=== PATIENT | male | born 1945 | race African-American/Black ===

== ENCOUNTER 2017-07-05 14:15 | Observation (INO) | payer OTHER, MEDICARE ==
[2017-07-05 14:42] LABS: ADD MAN DIFF? NO
[2017-07-05 14:45] LABS: BASO % 1 % (0-3); EOS # 0.2 x10^3/uL (0.0-0.7); EOS % 4 % (0-3); HEMATOCRIT 46.8 % (39.0-53.0); HEMOGLOBIN 15.6 g/dL (13.0-17.5); LYMPH # 2.8 x10^3/uL (1.0-4.8); LYMPH % 47 % (24-48); MEAN CORPUSCULAR HEMOGLOBIN 31 pg (25-35); MEAN CORPUSCULAR HGB CONC 33 g/dL (31-37); MEAN CORPUSCULAR VOLUME 93 fL (79-100); MONO % 17 % (0-9); NEUT # 1.9 x10^3uL (1.8-7.7); NEUT % 32 % (31-73); PLATELET COUNT 241 x10^3/uL (140-400); RED BLOOD COUNT 5.04 x10^6/uL (4.30-5.70); RED CELL DISTRIBUTION WIDTH 15.2 % (11.5-14.5); WHITE BLOOD COUNT 5.9 x10^3/uL (4.0-11.0)
[2017-07-05] MEDS ORDERED: MORPHINE SULFATE 4 MG/ML DISP.SYRIN. IV (15:00)
[2017-07-05] MEDS ORDERED: ONDANSETRON PF 4 MG/2 ML VIAL. IV ×2 (15:00→15:15)
[2017-07-05 15:07] LABS: NT-PRO BNP 89 pg/mL (0-124)
[2017-07-05] MEDS ORDERED: diphenhydrAMINE HCL 25 MG CAPSULE PO (15:15)
[2017-07-05] MEDS ORDERED: ACETAMINOPHEN/CODEINE 300/30MG TABLET. PO (15:15)
[2017-07-05] MEDS ORDERED: ACETAMINOPHEN 500 MG TABLET PO (15:15)
[2017-07-05] MEDS ORDERED: CALCIUM CARBONATE 500 MG TAB.CHEW PO (15:15)
[2017-07-05] MEDS ORDERED: IBUPROFEN 400 MG TABLET. PO (15:15)
[2017-07-05] MEDS ORDERED: NICOTINE 21MG PATCH. TD (15:15)
[2017-07-05] MEDS: METOPROLOL TART IMMED RELEASE 25 MG TABLET. PO (16:32)
[2017-07-05] MEDS: MORPHINE SULFATE 4 MG/ML DISP.SYRIN. IV (20:06)
[2017-07-05 20:49] LABS: BARBITURATES NEG (NEG); BENZODIAZEPINES NEG (NEG); CANNABINOIDS NEG (NEG); COCAINE POS (NEG); METHADONE NEG (NEG); OPIATES NEG (NEG); PHENCYCLIDINE NEG (NEG)
[2017-07-05 20:50] LABS: AMPHETAMINE/METHAMPHETAMINE NEG (NEG); ETHANOL, URINE NEG (NEG)
[2017-07-05] MEDS: HYDROcodone/APAP 5/325MG 1 TAB TABLET PO (23:05)
[2017-07-06] MEDS: MORPHINE SULFATE 4 MG/ML DISP.SYRIN. IV (03:52)
[2017-07-06 05:26] LABS: TROPONINI 0.089 ng/mL (0.000-0.055)
[2017-07-06 06:20] LABS: CKMB INDEX 0.5 % (0-4); CKMB MASS 0.9 ng/mL (0.0-3.6); CREATINE KINASE 170 U/L (39-308)
[2017-07-06] MEDS: HYDROcodone/APAP 5/325MG 1 TAB TABLET PO (08:40)
[2017-07-06] MEDS: METOPROLOL TART IMMED RELEASE 25 MG TABLET. PO (09:00)
[2017-07-06] MEDS: REGADENOSON 0.4 MG/5 ML DISP.SYRIN. IV (15:43)
== END 2017-07-06 18:15 | disposition home or self-care (01) ==
LOC: ER 14:15 → 2 NORTH 14:56
PROVIDERS: Internal Medicine
DX: R07.89 Other chest pain (principal); I10 Essential (primary) hypertension; M79.7 Fibromyalgia; F17.210 Nicotine dependence, cigarettes, uncomplicated; Z96.659 Presence of unspecified artificial knee joint; Z79.899 Other long term (current) drug therapy
CPT/HCPCS: 36415; 71045; 78452; 80307; 82553; 83880; 84484; 85025; 93005; 93017; 96374; 96375; 96376; 99285-25; 99406; A9500; G0378; G0379; J2270; J2785